=== PATIENT | female | born 1970 | race African-American/Black ===

== ENCOUNTER 2017-01-26 20:16 | Emergency (ER) | payer BC ==
[2017-01-26] MEDS ORDERED: Erythromycin Base 0.5% Oint 1 GM TUBE ONE (20:47)
== END 2017-01-26 20:54 | disposition home or self-care (01) ==
LOC: NAV ERS 20:16
DX: H10.9 Unspecified conjunctivitis (principal)
CPT/HCPCS: 99282

== ENCOUNTER 2017-10-13 23:28 | Emergency (ER) | payer BC ==
[2017-10-13] MEDS ORDERED: Adacel (T-DAP) 0.5 ML VIAL ONE (23:35)
[2017-10-13] MEDS ORDERED: Ibuprofen 800 MG TAB ONE (23:56)
== END 2017-10-14 00:03 | disposition home or self-care (01) ==
LOC: NAV ERS 23:28
DX: S61.022A Laceration with foreign body of left thumb without damage to nail, initial encounter (principal); I10 Essential (primary) hypertension; Z23 Encounter for immunization; W26.0XXA Contact with knife, initial encounter
CPT/HCPCS: 90471; 90715